=== PATIENT | female | born 1990 | race Caucasian/White ===

== ENCOUNTER 2016-12-06 12:41 | Emergency (ER) | payer MEDICARE, OTHER ==
[2016-12-06 13:37] LABS: HCG,QUALITATIVE URINE NEGATIVE
[2016-12-06] MEDS ORDERED: ACETAMINOPHEN 325 MG TABLET ONE (13:40)
[2016-12-06] MEDS ORDERED: MAALOX/LIDO2%VISC/SIMETHICONE 40 ML BOT ONE (13:40)
[2016-12-06] MEDS ORDERED: FAMOTIDINE 20 MG TABLET ONE (13:40)
[2016-12-06] MEDS ORDERED: SUCRALFATE 1 G/10 ML DOSE ONE (13:41)
[2016-12-06 14:26] LABS: SPECIFIC GRAVITY 1.015 (1.001-1.030); URINE BILIRUBIN NEGATIVE (NEGATIVE); URINE BLOOD 4+ (NEGATIVE); URINE GLUCOSE (UA) NEGATIVE (NEGATIVE); URINE LEUKOCYTE ESTERASE 2+ (NEGATIVE); URINE NITRITE NEGATIVE (NEGATIVE); URINE PROTEIN 1+ (NEGATIVE); URINE UROBILINOGEN NORMAL (0-1 mg/dl)
[2016-12-06 14:27] LABS: URINE APPEARANCE CLEAR; URINE COLOR AMBER
[2016-12-06 14:43] LABS: URINE BACTERIA 2+; URINE RBC 20-30 /hpf; URINE WBC 15-20 /hpf
== END 2016-12-06 14:55 | disposition home or self-care (01) ==
LOC: ED 12:41
DX: R10.84 Generalized abdominal pain (principal); R11.10 Vomiting, unspecified; R19.7 Diarrhea, unspecified; E11.9 Type 2 diabetes mellitus without complications; I10 Essential (primary) hypertension; J45.909 Unspecified asthma, uncomplicated
CPT/HCPCS: 81025; 87086; 81001; 99283 ×2; A9270 ×4

== ENCOUNTER 2016-12-15 19:32 | Emergency (ER) | payer MEDICARE, OTHER ==
[2016-12-15] MEDS ORDERED: IBUPROFEN 800 MG TABLET ONE (20:49)
[2016-12-15] MEDS ORDERED: TRAMADOL HCL 50 MG TABLET ONE (20:49)
== END 2016-12-15 21:10 | disposition home or self-care (01) ==
LOC: ED 19:32
DX: H65.193 Other acute nonsuppurative otitis media, bilateral (principal); J06.9 Acute upper respiratory infection, unspecified; I10 Essential (primary) hypertension; J45.909 Unspecified asthma, uncomplicated; E11.9 Type 2 diabetes mellitus without complications; Z79.84 Long term (current) use of oral hypoglycemic drugs
CPT/HCPCS: 99283 ×2; A9270 ×2

== ENCOUNTER 2017-01-07 13:15 | Outpatient (CLI) | payer MEDICARE, OTHER | END 2017-01-07 13:16 | disposition home or self-care (01) | LOC: NC 13:15 | PROVIDERS: ATTEND Internal Medicine Clinical Cardiac Electrophysiology | DX: E11.9 Type 2 diabetes mellitus without complications (principal); Z71.3 Dietary counseling and surveillance; Z79.4 Long term (current) use of insulin; I10 Essential (primary) hypertension ==